=== PATIENT | female | born 1985 | race Caucasian/White ===

== ENCOUNTER 2020-01-26 17:45 | Emergency (ER) | payer OTHER, SELFPAY ==
[2020-01-26 18:26] VITALS: BP 118/80; PULSE 84; RESP 19; TEMP 36.8; O2SAT 99; BMI 25.6
--- NOTE | 2020-01-26 18:34 | HMH.EDUTC ---
[facility] [place] Disposition Clinical Impression: Muscle ache Disposition: Home, Self-Care Condition on Discharge: Good Additional Instructions: - Steroids RX'd - Educated on using ice/heat on area - Follow up with PCP next week if no improvement Prescriptions: predniSONE [Prednisone 20mg Tab] 20 mg PO BID #10 tab Prescription Printed Referrals: Daisha Abbasi [Primary Care Provider] - Time of Disposition: 18:40 Medical Decision Making - Raul Inquiry Pt receiving controlled substance: No Vital Signs: 01/26/20 18:26 Temperature 98.2 F Temperature Source Oral Pulse Rate [Right Brachial] 84 Respiratory Rate 19 Blood Pressure [Right Arm] 118/80 Blood Pressure Mean [Right Arm] 92 Blood Pressure Source [Right Arm] Automatic Cuff Blood Pressure Position [Right Arm] Sitting 02 Sat by Pulse Oximetry 99 Oxygen Delivery Method Room Air [facility] [place] HPI - General Chief complaint: Urgent Treatment Center Stated complaint: L shoulder pain back pain, muscle spasm Time Seen by Provider: 01/26/20 18:34 Mode of Arrival: Ambulatory Source of Information: Patient Limitations: No Limitations Description of Symptoms (Recalled from Triage Doc. by RN): PATIENT C/O MUSCLE SPASMS TO LEFT SHOULDER AND UPPER BACK X 4 MONTHS HEENT Symptoms (Recalled from RN notes): No Resp Symptoms (Recalled from RN notes): No Skin Symptoms (Recalled from RN notes): No MS Symptoms (Recalled from RN notes): Yes Functional Status (Recalled from RN notes): WNL - History of Present Illness Provider Complaint: 34 year old female presents today with complaint of left sided scapula pain. She says that she has been having muscle pain there for about 1.5 weeks. Prior to that was having muscle pain on the left pectoral muscle, and saw PCP and was given muscle relaxants. Says since then muscle pain is only in the scapula. She says the muscle relaxant knocks her out and then she doesnt move and is stiffened/worse spasming. She has not been taking the relaxants anymore. - Related Data Previous Rx's Medication Instructions Recorded predniSONE [Prednisone 20mg 20 mg PO BID #10 tab 01/26/20 Tab] Allergies Allergy/AdvReac Type Severity Reaction Status Date / Time No Known Allergies Allergy Verified 12/14/18 15:58 - Worker's Comp Is this a Worker's Comp case?: No [facility] History - Hepatitis A Screen Drug use history?: No High risk sexual behaviors?: No History of sexually transmitted infection?: No Currently employed?: No Childcare worker?: No Do you have indoor plumbing?: Yes Do you have electricity?: Yes Attestation statement:: This patient has been screened for Hepatitis A risk factors. I have reviewed the patient's past medical history: Yes - Social History Smoking Status: Never smoker Alcohol Intake: never Substance Use Type: denies use Occupational Status: other Housing: house Household Members: family Family Hx:: No significant family history ROS Obtained: Yes Systems reviewed as appropriate & no additional complaints - Constitutional Constitutional: Reports system reviewed and no additional complaints, except as docu, Denies body ache, Denies chills, Denies fever(s) - Eyes Eyes: Reports system reviewed and no additional complaints, except as docu, Denies change in vision - ENT Ears, Nose, Mouth, and Throat: Reports system reviewed and no additional complaints, except as docu - Cardiovascular Cardiovascular: Reports system reviewed and no additional complaints, except as docu, Denies chest pain, Denies chest pain at rest, Denies diaphoresis, Denies dyspnea - Respiratory Respiratory: Yes system reviewed and no additional complaints, except as docu, No chest congestion - Gastrointestinal Gastrointestingal: Reports: system reviewed and no additional complaints, except as docu. Denies: incontinent of stools - Genitourinary Female Genitourinary: Reports system reviewed and no additional complaints, except as docu - M
[2020-01-26 18:45] VITALS: BP 118/80; PULSE 84; RESP 19; TEMP 36.8; O2SAT 99
== END 2020-01-26 18:50 | disposition home or self-care (01) ==
PROVIDERS: Emergency Provider Nurse Practitioner Family; PCP Family Medicine
DX: M79.10 Myalgia, unspecified site (principal); M25.512 Pain in left shoulder
CPT/HCPCS: 99201

== ENCOUNTER 2020-08-23 16:53 | Emergency (ER) | payer OTHER, SELFPAY ==
[2020-08-23 16:55] VITALS: BP 125/71; PULSE 71; RESP 20; TEMP 37; O2SAT 98; BMI 24.7
[2020-08-23 17:03] VITALS: BMI 24.7
--- NOTE | 2020-08-23 17:03 | XR_ITS ---
PROCEDURE: XR HUMERUS LT CLINICAL INDICATION: INJURY Posttraumatic pain COMPARISON: No exams were available for comparison FINDINGS: No fracture or dislocation. No lytic or blastic change. There is normal mineralization. The joint spaces are well-preserved. No significant degenerative/arthritic changes. No erosive changes evident. Other findings:None. IMPRESSION: No acute findings. Dictated by: Adilson Yeh MD 08/24/2020 07:25 Adilson Yeh MD in [place] 08/24/2020 07:25
--- NOTE | 2020-08-23 17:03 | XR_ITS ---
PROCEDURE: XR ELBOW LT MIN 3V CLINICAL INDICATION: INJURY Posttraumatic pain COMPARISON: No exams were available for comparison FINDINGS: No fracture or dislocation. No lytic or blastic change. There is normal mineralization. The joint spaces are well-preserved. No significant degenerative/arthritic changes. No erosive changes evident. Other findings:None. IMPRESSION: No acute findings. Dictated by: Adilson Yeh MD 08/24/2020 07:24 Adilson Yeh MD in [place] 08/24/2020 07:24
--- NOTE | 2020-08-23 17:22 | HMH.EDUTC ---
[facility] [place] Clinical Impression: Elbow sprain Qualifiers: Encounter type: initial encounter Laterality: left Qualified Code(s): S53.402A - Unspecified sprain of left elbow, initial encounter Disposition: Home, Self-Care Condition on Discharge: Good Instructions: DI for Elbow Sprain Additional Instructions: elevate elizabeth ice for 20 mins remove then repeat tylenol or motrin fpr pain follow up with ortho if no improvement return Referrals: Daisha Abbasi [Primary Care Provider] - Time of Disposition: 17:33 Medical Decision Making - Raul Inquiry Pt receiving controlled substance: No Vital Signs: 08/23/20 16:55 08/23/20 17:28 Temperature 98.6 F 98.6 F Temperature Source Oral Pulse Rate 71 Pulse Rate [Right Brachial] 71 Respiratory Rate 20 20 Blood Pressure 125/71 Blood Pressure [Right Arm] 125/71 Blood Pressure Mean [Right Arm] 89 Blood Pressure Source [Right Arm] Automatic Cuff Blood Pressure Position [Right Arm] Sitting 02 Sat by Pulse Oximetry 98 Orders (Tests/Meds): ORDERS Category Date Time Status Elbow XR left mininum 3 views [XR elbow LT min 3V] Stat Exams 08/23/20 17:03 Taken XR humerus LT Stat Exams 08/23/20 17:03 Taken [facility] [place] - General Chief complaint: Urgent Treatment Center Stated complaint: AO fell 08/18 injured L arm Time Seen by Provider: 08/23/20 17:22 Mode of Arrival: Ambulatory Source of Information: Patient Limitations: No Limitations Description of Symptoms (Recalled from Triage Doc. by RN): PATIENT C/O PAIN TO LEFT ELBOW AREA AFTER FALLING ON TUESDAY HEENT Symptoms (Recalled from RN notes): No Resp Symptoms (Recalled from RN notes): No Skin Symptoms (Recalled from RN notes): No MS Symptoms (Recalled from RN notes): Yes Functional Status (Recalled from RN notes): WNL - History of Present Illness Provider Complaint: 34 yr old female presents for left elbow pain.pt states she fell on tuesday and the pain in her elbow did not improve so she wanted to have it checked. pt states pain worse with rom - Related Data Allergies Allergy/AdvReac Type Severity Reaction Status Date / Time No Known Allergies Allergy Verified 12/14/18 15:58 - Worker's Comp Is this a Worker's Comp case?: No [facility] History - Hepatitis A Screen Drug use history?: No High risk sexual behaviors?: No History of sexually transmitted infection?: No Currently employed?: No Childcare worker?: No Do you have indoor plumbing?: Yes Do you have electricity?: Yes Attestation statement:: This patient has been screened for Hepatitis A risk factors. I have reviewed the patient's past medical history: Yes - Social History Smoking Status: Never smoker Alcohol Intake: never Substance Use Type: denies use Occupational Status: other Housing: house Household Members: family Family Hx:: No significant family history ROS Obtained: Yes Systems reviewed as appropriate & no additional complaints - Constitutional Constitutional: Reports system reviewed and no additional complaints, except as docu, Denies fever(s) - Eyes Eyes: Reports system reviewed and no additional complaints, except as docu, Denies change in vision - ENT Ears, Nose, Mouth, and Throat: Reports system reviewed and no additional complaints, except as docu, Denies sore throat - Cardiovascular Cardiovascular: Reports system reviewed and no additional complaints, except as docu, Denies chest pain - Respiratory Respiratory: Reports system reviewed and no additional complaints, except as docu, Denies change in phlegm color - Gastrointestinal Gastrointestingal: Reports: system reviewed and no additional complaints, except as docu. Denies: bloating - Genitourinary Female Genitourinary: Reports system reviewed and no additional complaints, except as docu - Musculoskeletal Musculoskeletal: Reports system reviewed and no additional complaints, except as docu, Reports as per HPI, Reports joint pain Comments: pain wi
[2020-08-23 17:28] VITALS: BP 125/71; PULSE 71; RESP 20; TEMP 37; O2SAT 98
== END 2020-08-23 17:35 | disposition home or self-care (01) ==
PROVIDERS: Emergency Provider Nurse Practitioner Family; PCP Family Medicine
DX: S53.402A Unspecified sprain of left elbow, initial encounter (principal); W01.0XXA Fall on same level from slipping, tripping and stumbling without subsequent striking against object, initial encounter; Y92.9 Unspecified place or not applicable
CPT/HCPCS: 73060; 73080; 99202; G0463

== ENCOUNTER 2023-01-20 20:16 | Emergency (ER) | payer OTHER, SELFPAY ==
[2023-01-20 20:30] VITALS: BP 121/73; PULSE 98; RESP 16; TEMP 36.6; O2SAT 100; BMI 27.3
[2023-01-20 21:00] VITALS: BP 121/53; PULSE 89; O2SAT 98
--- NOTE | 2023-01-20 21:04 | PC.NURSE ---
rounded on pt nothing needed at this time,call light at bs
--- NOTE | 2023-01-20 21:08 | HMH.EDGENADL ---
Discharge Plan Disposition Patient Disposition: Home, Self-Care Condition: Good Chief Complaint: Nausea/Vomiting/Diarrhea Referrals Follow up/Referrals: Daisha Abbasi [Primary Care Provider] - See instructions Clinical Impressions Clinical Impression: Mild tetrahydrocannabinol (THC) abuse Intoxication by drug Qualifiers: Complication of substance-induced condition: uncomplicated Qualified Code(s): F19.920 - Other psychoactive substance use, unspecified with intoxication, uncomplicated Instructions Patient Instructions: DI for Diarrhea and Traveler's Diarrhea -- Adult, DI for Diarrhea and Traveler's Diarrhea -- Child, DI for Nausea -- Adult, DI for Nausea -- Child Discharge ED Provider: Shane Chou General Adult HPI General Chief complaint: Nausea/Vomiting/Diarrhea Stated complaint: 1500 ate thc gummy, vomiting Time Seen by Provider: 01/20/23 20:32 Mode of Arrival: Ambulatory Source of Information: Patient Limitations: No Limitations Description of Symptoms (Recalled from ER Triage Doc. by RN): pt states she tried a new THC gummy today around 1500. It was half of a [place] [employer]ocket 3000 mg D8 D9 [facility] THCP [place]. pt states this is different than other occasions. pt states she has had N/V, feels like she is slow to respond, and she feels like the gummy is taking much longer to wear off. History of Present Illness HPI narrative: This is a 37-year-old female with no relevant medical history presenting with a intoxication. Patient states that she had a THC gummy around 1500 today. Since that time, has felt fuzzy, hot and icy cold at the same time. Denies blurry vision, double vision, but has had nausea and vomiting. Denies abdominal pain, chest pain, shortness of breath, hallucinations. Alert and oriented on my evaluation. Has been able to urinate since that time. Related Data Allergies Allergy/AdvReac Type Severity Reaction Status Date / Time No Known Allergies Allergy Verified 01/20/23 20:55 [facility] Disclaimer: The information contained in this section may have been updated after the patient was seen, as this information can be updated by other users. Social History Smoking Status: Never smoker alcohol intake: never substance use type: denies use current occupational status: other Travel in the last 8 weeks: None household members: family housing: house ROS Obtained: Yes All systems reviewed & no additional complaints except as documented Physical Exam General General appearance: alert, in no apparent distress and other ( ) Head Head exam: atraumatic and normocephalic Eye Eye exam: Present normal appearance, PERRL, EOMI and mydriasis ENT ENT exam: Present mucous membranes moist Neck Neck exam: Present normal inspection, full ROM and trachea midline Respiratory Respiratory exam: Absent respiratory distress, wheezes, stridor, accessory muscle use or prolonged expiratory phase Cardiovascular Cardiovascular exam: Present regular rate and normal rhythm Abdominal Exam Abdominal exam: Present soft; Absent distention, tenderness, guarding, rebound, rigidity or normal bowel sounds Extremities Exam Extremities exam: Absent edema Neurological Exam Neurological exam: Present alert, oriented X3, CN II-XII intact and normal gait; Absent motor sensory deficit Skin Skin exam: Present warm and dry; Absent diaphoresis or erythema Medical Decision Making Medical Records Medical records reviewed: Yes I reviewed the patient's medical records. Raul Inquiry Pt receiving controlled substance: No Raul was queried for this patient: No Vital Signs: 01/20/23 20:30 01/20/23 21:00 01/20/23 21:30 Temperature 98 F Temperature Source Oral Pulse Rate 89 85 Pulse Rate [Left] 98 H Respiratory Rate 16 Blood Pressure 121/53 L 117/65 Blood Pressure [Right Arm] 121/73 Blood Pressure Mean 88 85 Blood Pressure Mean [Right Arm] 89 Blood Pressure Source [Right Arm] Automatic Cuff
--- NOTE | 2023-01-20 21:21 | ECG_ITS ---
APPROVED REPORT Exam: Resting ECG HR:88 bpm ECG Measurements Heart Rate 88 AXES WA 176 P 76 QRSd 101 QRS 94 QT 363 T 77 QTc 408 Conclusion SINUS RHYTHM BORDERLINE RIGHT AXIS DEVIATION [QRS AXIS > 90] BORDERLINE ECG UNCONFIRMED REPORT Electronically signed by : César Ayala MD 01/21/2023 16:16:55
[2023-01-20 21:30] VITALS: BP 117/65; PULSE 85; O2SAT 98
[2023-01-20 21:37] LABS: Benzodiazepines Screen,Urine Negative ng/ml (<200)
[2023-01-20 21:38] LABS: Amphetamine/Metha Screen,Urine Negative ng/ml (<1000); Barbiturates Screen,Urine Negative ng/ml (<200)
[2023-01-20 21:39] LABS: Cannabinoid Screen,Urine Positive ng/ml (<50); Cocaine Screen,Urine Negative ng/ml (<300)
[2023-01-20 21:40] LABS: Methadone Screen,Urine Negative ng/ml (<300)
[2023-01-20 21:41] LABS: Opiate Screen,Urine Negative ng/ml (<300); Phencyclidine Screen,Urine Negative ng/ml (<25)
[2023-01-20 22:05] VITALS: BP 124/61; PULSE 83; RESP 16; TEMP 36.7
== END 2023-01-20 22:19 | disposition home or self-care (01) ==
PROVIDERS: Emergency Provider Emergency Medicine; PCP Family Medicine
DX: F12.129 Cannabis abuse with intoxication, unspecified (principal); R11.10 Vomiting, unspecified
CPT/HCPCS: 80305; 93005; 93041; 96360; 99284

== ENCOUNTER 2024-01-03 21:12 | Emergency (ER) | payer OTHER, SELFPAY ==
[2024-01-03] VITALS (8 sets, daily range): BP systolic 115–158; BP diastolic 63–88; PULSE 61–80; RESP 14–25; TEMP 36.8; O2SAT 94–100; BMI 25.7
--- NOTE | 2024-01-03 21:12 | ECG_ITS ---
APPROVED REPORT Exam: Resting ECG HR:74 bpm ECG Measurements Heart Rate 74 AXES RI 163 P 66 QRSd 94 QRS 98 QT 355 T 65 QTc 383 Conclusion SINUS RHYTHM BORDERLINE RIGHT AXIS DEVIATION [QRS AXIS > 90] BORDERLINE ECG Electronically signed by : DYLON KRUSE, 01/04/2024 07:56:07
--- NOTE | 2024-01-03 21:20 | XR_ITS ---
PROCEDURE INFORMATION: Exam: XR Chest Exam date and time: 01/03/2024 9:24 PM Age: 38 years old Clinical indication: Chest wall pain; Additional info: Left chest wall pain TECHNIQUE: Imaging protocol: Radiologic exam of the chest. Views: 1 view. COMPARISON: CR XR HUMERUS LT 08/23/2020 5:00 PM FINDINGS: Lungs: Right mid to lower lung zone calcified granuloma. No consolidation. Pleural spaces: Unremarkable. No pleural effusion. No pneumothorax. Heart/Mediastinum: Unremarkable. No cardiomegaly. Vasculature: Unremarkable. Bones/joints: Unremarkable. IMPRESSION: No acute findings.
[2024-01-03 21:35] LABS: Basophils % 0.7 % (0.1-2.0); Eosinophils # 0.1 K/mm3 (0.0-0.4); Eosinophils % 1.3 % (0.1-12.0); Hematocrit 38.6 % (37.0-47.0); Hemoglobin 13.8 g/dL (12.2-16.2); Lymphocytes # 2.5 K/mm3 (0.7-4.5); Lymphocytes % 41.4 % (10-50); Mean Corpuscular HGB Conc 35.6 g/dL (31.8-35.4); Mean Corpuscular Hemoglobin 33.2 pg (27.0-31.2); Mean Corpuscular Volume 93.3 fl (81-99); Monocytes # 0.3 K/mm3 (0.1-1.0); Monocytes % 5.7 % (1.7-9.3); Neutrophils # 3.1 K/mm3 (1.8-7.8); Neutrophils % 50.8 % (37.0-80.0); Platelet Count 254 K/mm3 (142-424); Red Blood Count 4.14 M/mm3 (4.20-5.40); Red Cell Distribution Width 13.5 % (11.5-17.5)
[2024-01-03 21:40] LABS: Chloride 105 mmol/L (98-107); Potassium 3.5 mmoL/L (3.5-5.1); Sodium 140 mmol/L (136-145)
--- NOTE | 2024-01-03 21:40 | [facility].EDCP ---
Discharge Plan Disposition Patient Disposition: Home, Self-Care Condition: Good Referrals Follow up/Referrals: Provider,MD Annel [Primary Care Provider] - See instructions Activity Restrictions/Add. Instructions Additional Instructions/Restrictions: You were evaluated in the ER. You are appropriate for discharge at this time. Make an appointment with your primary care physician for reevaluation in 2 to 3 days. Discuss with them your ER visit. Also discuss with them the thyroid nodule that was identified on CT imaging. This does not appear to be anything dangerous, they can monitor it in the future. Return to the ER with new, worsening, or otherwise concerning symptoms. Clinical Impressions Clinical Impression: Chest pain, Acute neck pain, Headache Discharge ED Provider: Shahbaz Tran HPI <Shahbaz Tran MD - Last Filed: 01/03/24 23:37> General Chief Complaint: Chest Pain Stated Complaint: CP Time Seen by Provider: 01/03/24 21:20 Mode of Arrival: Ambulatory Source of Information: Patient Limitations: No Limitations Description of Symptoms (Recalled from ER Triage Doc. by RN): 38 F presents with 2-3 days of left chest wall pain that she describes as a muscle spasm. Patient reports this started in her left shoulder blade, but now is in her chest. Patient denies cardiac issues. She only takes vitamins daily. Denies smoking. Patient adds that she has noticed increased swelling to her hands and abdominal area which is not normal for her. History of Present Illness HPI narrative: Patient is a 38-year-old female with no chronic comorbidities who presents emergency department for evaluation of chest pain. Patient has had a left-sided neck pain rating up into her head with a severe left-sided headache over the last few days, she has had headaches at baseline however they are nothing like this. Earlier this evening she had what she describes as muscle spasms that were substernal, sharp, there were a few and they are not continuing to go on however due to persistent symptoms that are concerning to her she presents here for continued evaluation. The pain in her neck and left anterior chest intermittently goes through to her shoulder blade, she describes the pain as what you feel when you are too cold. No chest surgeries, no other acute complaints at this time. Related Data Allergies Allergy/AdvReac Type Severity Reaction Status Date / Time No Known Allergies Allergy Verified 01/20/23 20:55 PFSH <Shahbza Tran MD - Last Filed: 01/03/24 23:37> [facility] Disclaimer: The information contained in this section may have been updated after the patient was seen, as this information can be updated by other users. Social History Smoking Status: Never smoker alcohol intake: never substance use type: denies use current occupational status: other Travel in the last 8 weeks: None household members: family housing: house <Shahbaz Tran MD - Last Filed: 01/03/24 23:37> ROS Obtained: Yes Systems reviewed as appropriate & no additional complaints except as documented Physical Exam <Shahbaz Tran MD - Last Filed: 01/03/24 23:37> General General appearance: alert and in no apparent distress Head Head exam: atraumatic and normocephalic Eye Eye exam: Present PERRL ENT ENT exam: Present mucous membranes moist Neck Neck exam: Present normal inspection Chest Chest inspection: Present normal inspection and symmetric chest wall rise Respiratory Respiratory exam: Absent respiratory distress Cardiovascular Cardiovascular exam: Present regular rate and normal rhythm Abdominal Exam Abdominal exam: Present soft; Absent tenderness Extremities Exam Extremities exam: Present normal inspection Neurological Exam Neurological exam: Present alert Psychiatric Psychiatric exam: Present normal affect Skin Skin exam: Present warm and dry HEART Score <Shahbaz Tran MD - Last Filed: 01/03/24 23:37> HEART Score HEART Score assessment performed?: Yes History (anamnesis): Moderately suspicious ECG: Normal Age: <45 years Risk factors: No known risk factors Troponin: </= normal limit HEART Score: 1 <Kayla Leon MD - Last Filed: 01/04/24 00:39> HEART Score HEART Score: 1 Critical Care <Shahbaz Tran MD - Last Filed: 01/03/24 23:37> Critical Care Time Critical Care Time: No Medical Decision Making <Shahbaz Tran MD - Last Filed: 01/03/24 23:37> Raul Inquiry Pt receiving controlled substance: No Vital Signs Vital Signs: 01/03/24 21:13 01/03/24 21:19 01/03/24 21:21 Temperature 98.2 F Temperature Source Oral Pulse Rate 70 65 Pulse Rate [Left] 72 Respiratory Rate 22 14 Blood Pressure 150/82 H Blood Pressure [Right Arm] 154/78 H Blood Pressure Mean [Right Arm] 103 Blood Pressure Source [Right Arm] Automatic Cuff Blood Pressure Position [Right Arm] Supine 02 Sat by Pulse Oximetry 98 100 Oxygen Delivery Method Room Air 01/03/24 21:30 01/03/24 22:00 01/03/24 22:31 Temperature Temperature Source Pulse Rate 67 66 61 Pulse Rate [Left] Respiratory Rate 15 25 H Blood Pressure 158/88 H 135/74 130/63 Blood Pressure [Right Arm] Blood Pressure Mean [Right Arm] Blood Pressure Source [Right Arm] Blood Pressure Position [Right Arm] 02 Sat by Pulse Oximetry 99 97 94 L Oxygen Delivery Method 01/03/24 23:01 01/03/24 23:30 Temperature Temperature Source Pulse Rate 80 62 Pulse Rate [Left] Respiratory Rate 21 20 Blood Pressure 128/66 115/67 Blood Pressure [Right Arm] Blood Pressure Mean [Right Arm] Blood Pressure Source [Right Arm] Blood Pressure Position [Right Arm] 02 Sat by Pulse Oximetry 97 100 Oxygen Delivery Method Lab Data Labs: Lab Results 01/03/24 21:22: WBC 6.0, RBC 4.14 L, Hgb 13.8, Hct 38.6, MCV 93.3, MCH 33.2 H, MCHC 35.6 H, RDW 13.5, Plt Count 254, MPV 7.0 L, Neut % (Auto) 50.8, Lymph % (Auto) 41.4, [place] % (Auto) 5.7, Eos % (Auto) 1.3, Baso % (Auto) 0.7, Neut # (Auto) 3.1, Lymph # (Auto) 2.5, [place] # (Auto) 0.3, Eos # (Auto) 0.1, Baso # (Auto) 0.0, Sodium 140, Potassium 3.5, Chloride 105, Carbon Dioxide 25, Anion Gap 13.5, BUN 12, Creatinine 0.80, Estimated Creat Clear 97, Estimated GFR 79, Est GFR ( Amer) 96, Glucose 123 H, Calcium 9.5, Total Bilirubin 0.3, AST 25, ALT 28, Alkaline Phosphatase 58, Troponin I < 0.01, Total Protein 7.5, Albumin 4.7, Globulin 2.8, Albumin/Globulin Ratio 1.7, Serum HCG, Qual Negative 01/04/24 00:00: Troponin I < 0.01 01/03/24 21:22 01/03/24 21:22 Response Orders (Tests/Meds): ED MEDICATIONS Generic Name Dose Route Start Last Admin Trade Name Jonah PRN Reason Stop Dose Admin Sodium Chloride 10 ml 01/03/24 21:20 Sodium Chloride 0.9% 10ml Flush Syringe IV 02/02/24 21:19 NEEDED PRN Maintain IV Site Discontinued Medications Generic Name Dose Route Start Last Admin Trade Name Jonah PRN Reason Stop Dose Admin Acetaminophen 1,000 mg 01/03/24 21:54 01/03/24 22:05 Acetaminophen 1,000mg/100ml Vial IV 01/03/24 21:55 1,000 mg ONCE ONE Administration Diphenhydramine HCl 50 mg 01/03/24 21:54 01/03/24 22:05 Diphenhydramine 50mg/Ml Vial IV 01/03/24 21:55 50 mg ONCE ONE Administration Lactated Ringer's 1,000 mls @ 999 mls/hr 01/03/24 21:54 01/03/24 22:05 Lactated Ringer's 1000 Ml Bag IV 01/03/24 22:54 999 mls/hr .Q1H1M ONE Administration Iopamidol 180 ml 01/03/24 23:04 01/03/24 23:05 Iopamidol-370 (76%);100ml Bottle IV 01/03/24 23:05 180 ml ONCE ONE Administration Prochlorperazine Edisylate 5 mg 01/03/24 21:54 01/03/24 22:05 Prochlorperazine 10mg/2ml Vial IV 01/03/24 21:55 5 mg ONCE ONE Administration Sodium Chloride 100 ml 01/03/24 23:03 01/03/24 23:04 0.9 % Sodium Chloride 50 Ml Vial IV 01/03/24 23:04 100 ml ONCE ONE Administration Sodium Chloride 10 ml 01/03/24 23:04 01/03/24 23:05 Sodium Chloride 0.9% 10ml Syr (Rad Only) IV 01/03/24 23:05 10 ml ONCE ONE Administration ORDERS Category Date Time Status CT angio chest - dissection Stat Cat Scan 01/03/24 21:[address] angio head Stat Cat Scan 01/03/24 21:[address] angio neck Stat Cat Scan 01/03/24 21:[address] head/brain wo con Stat Cat Scan 01/03/24 21:54 Completed XR chest portable Stat Exams 01/03/24 21:20 Completed Complete Blood Count Auto Diff Stat Lab 01/03/24 21:22 Completed Comprehensive Metabolic Panel Stat Lab 01/03/24 21:22 Completed HCG Qualitative, Serum Stat Lab 01/03/24 21:22 Completed Troponin I Q3H Lab 01/03/24 21:22 Completed Troponin I Q3H Lab 01/04/24 00:00 Completed Troponin I Q3H Lab 01/04/24 03:30 Ordered ECG Data Tracing #1: ECG Narrative: Independently interpreted by me rate is 74, rhythm is regular, axis is rightward deviated, no ST elevation in anatomical contiguous leads, QTc 383. MDM Narrative Medical Decision Narrative: In summary patient is a 38-year-old female past medical history described above presents emergency department for evaluation of chest pain, neck pain, headache. Patient is hemodynamically stable nontoxic-appearing upon arrival, afebrile. Differential diagnosis includes dissection, ACS, noncardiac chest pain, malpositioning with muscle spasm, among others. Workup will be conducted with hematologic labs, CTA, serial troponins. Initial inventions include headache cocktail, crystalloid bolus. Workup reviewed by me, hematologic labs are nonactionable, initial troponin undetectably low, hCG negative. CT imaging and repeat evaluation pending at time of transfer of care to the oncoming physician, Dr. Leon. <Kayla Leon MD - Last Filed: 01/04/24 00:39> Vital Signs Vital Signs: 01/03/24 21:13 01/03/24 21:19 01/03/24 21:21 Temperature 98.2 F Temperature Source Oral Pulse Rate 70 65 Pulse Rate [Left] 72 Respiratory Rate 22 14 Blood Pressure 150/82 H Blood Pressure [Right Arm] 154/78 H Blood Pressure Mean [Right Arm] 103 Blood Pressure Source [Right Arm] Automatic Cuff Blood Pressure Position [Right Arm] Supine 02 Sat by Pulse Oximetry 98 100 Oxygen Delivery Method Room Air 01/03/24 21:30 01/03/24 22:00 01/03/24 22:31 Temperature Temperature Source Pulse Rate 67 66 61 Pulse Rate [Left] Respiratory Rate 15 25 H Blood Pressure 158/88 H 135/74 130/63 Blood Pressure [Right Arm] Blood Pressure Mean [Right Arm] Blood Pressure Source [Right Arm] Blood Pressure Position [Right Arm] 02 Sat by Pulse Oximetry 99 97 94 L Oxygen Delivery Method 01/03/24 23:01 01/03/24 23:30 Temperature Temperature Source Pulse Rate 80 62 Pulse Rate [Left] Respiratory Rate 21 20 Blood Pressure 128/66 115/67 Blood Pressure [Right Arm] Blood Pressure Mean [Right Arm] Blood Pressure Source [Right Arm] Blood Pressure Position [Right Arm] 02 Sat by Pulse Oximetry 97 100 Oxygen Delivery Method Lab Data Labs: Lab Results 01/03/24 21:22: WBC 6.0, RBC 4.14 L, Hgb 13.8, Hct 38.6, MCV 93.3, MCH 33.2 H, MCHC 35.6 H, RDW 13.5, Plt Count 254, MPV 7.0 L, Neut % (Auto) 50.8, Lymph % (Auto) 41.4, [place] % (Auto) 5.7, Eos % (Auto) 1.3, Baso % (Auto) 0.7, Neut # (Auto) 3.1, Lymph # (Auto) 2.5, [place] # (Auto) 0.3, Eos # (Auto) 0.1, Baso # (Auto) 0.0, Sodium 140, Potassium 3.5, Chloride 105, Carbon Dioxide 25, Anion Gap 13.5, BUN 12, Creatinine 0.80, Estimated Creat Clear 97, Estimated GFR 79, Est GFR ( Amer) 96, Glucose 123 H, Calcium 9.5, Total Bilirubin 0.3, AST 25, ALT 28, Alkaline Phosphatase 58, Troponin I < 0.01, Total Protein 7.5, Albumin 4.7, Globulin 2.8, Albumin/Globulin Ratio 1.7, Serum HCG, Qual Negative 01/04/24 00:00: Troponin I < 0.01 Response Orders (Tests/Meds): ED MEDICATIONS Generic Name Dose Route Start Last Admin Trade Name Freq PRN Reason Stop Dose Admin Sodium Chloride 10 ml 01/03/24 21:20 Sodium Chloride 0.9% 10ml Flush Syringe IV 02/02/24 21:19 NEEDED PRN Maintain IV Site Discontinued Medications Generic Name Dose Route Start Last Admin Trade Name Freq PRN Reason Stop Dose Admin Acetaminophen 1,000 mg 01/03/24 21:54 01/03/24 22:05 Acetaminophen 1,000mg/100ml Vial IV 01/03/24 21:55 1,000 mg ONCE ONE Administration Diphenhydramine HCl 50 mg 01/03/24 21:54 01/03/24 22:05 Diphenhydramine 50mg/Ml Vial IV 01/03/24 21:55 50 mg ONCE ONE Administration Lactated Ringer's 1,000 mls @ 999 mls/hr 01/03/24 21:54 01/03/24 22:05 Lactated Ringer's 1000 Ml Bag IV 01/03/24 22:54 999 mls/hr .Q1H1M ONE Administration Iopamidol 180 ml 01/03/24 23:04 01/03/24 23:05 Iopamidol-370 (76%);100ml Bottle IV 01/03/24 23:05 180 ml ONCE ONE Administration Prochlorperazine Edisylate 5 mg 01/03/24 21:54 01/03/24 22:05 Prochlorperazine 10mg/2ml Vial IV 01/03/24 21:55 5 mg ONCE ONE Administration Sodium Chloride 100 ml 01/03/24 23:03 01/03/24 23:04 0.9 % Sodium Chloride 50 Ml Vial IV 01/03/24 23:04 100 ml ONCE ONE Administration Sodium Chloride 10 ml 01/03/24 23:04 01/03/24 23:05 Sodium Chloride 0.9% 10ml Syr (Rad Only) IV 01/03/24 23:05 10 ml ONCE ONE Administration ORDERS Category Date Time Status CT angio chest - dissection Stat Cat Scan 01/03/24 21:[address] angio head Stat Cat Scan 01/03/24 21:[address] angio neck Stat Cat Scan 01/03/24 21:[address] head/brain wo con Stat Cat Scan 01/03/24 21:54 Completed XR chest portable Stat Exams 01/03/24 21:20 Completed Complete Blood Count Auto Diff Stat Lab 01/03/24 21:22 Completed Comprehensive Metabolic Panel Stat Lab 01/03/24 21:22 Completed HCG Qualitative, Serum Stat Lab 01/03/24 21:22 Completed Troponin I Q3H Lab 01/03/24 21:22 Completed Troponin I Q3H Lab 01/04/24 00:00 Completed Troponin I Q3H Lab 01/04/24 03:30 Ordered MDM Narrative Medical Decision Narrative: In summary patient is a 38-year-old female past medical history described above presents emergency department for evaluation of chest pain, neck pain, headache. Patient is hemodynamically stable nontoxic-appearing upon arrival, afebrile. Differential diagnosis includes dissection, ACS, noncardiac chest pain, malpositioning with muscle spasm, among others. Workup will be conducted with hematologic labs, CTA, serial troponins. Initial inventions include headache cocktail, crystalloid bolus. Workup reviewed by me, hematologic labs are nonactionable, initial troponin undetectably low, hCG negative. CT imaging and repeat evaluation pending at time of transfer of care to the oncoming physician, Dr. Leon. Edward: Upon my assumption of care patient is stable and resting comfortably. CT imaging pending at time of my assumption of care. I reviewed the labs from Dr. Tran and agree with his assessment and plan so far. Serial troponin also pending. Repeat troponin undetectably low at less than 0.01, no significant delta. Nonactionable. CT head personally interpreted does not demonstrate any acute intracranial abnormality, no mass, bleed, or midline shift. See radiology read for final interpretation. CT angiography was reviewed and there are no acute vascular abnormalities. Incidentally, thyroid nodule was identified. Patient was made aware of incidental findings. On reassessment patient continues to be stable, her symptoms are dramatically improved, she feels much better and is appropriate for discharge. Patient was given instructions on continued symptomatic management, follow-up instructions, strict return precautions for the ER. She indicated understanding and the patient was discharged in stable condition.
[2024-01-03 21:42] LABS: Blood Urea Nitrogen 12 mg/dl (7-17); Creatinine Clearance Estimated 97 mL/min (50-200); Estimated Glomerular Filt Rate 79 ml/min (>60); GFR (African American) 96 ML/MIN (>60)
[2024-01-03 21:43] LABS: Alanine Aminotransferase 28 U/L (12-78); Albumin Level 4.7 g/dl (3.5-5.0); Albumin/Globulin Ratio 1.7 (1.1-1.8); Alkaline Phosphatase 58 U/L (38-126); Anion Gap 13.5 mEq/L (5-15); Aspartate Amino Transferase 25 U/L (14-36); Bilirubin,Total 0.3 mg/dl (0.2-1.3); Calcium 9.5 mg/dl (8.4-10.2); Carbon Dioxide 25 mmol/L (22.0-30.0); Globulin 2.8 g/dL (1.3-3.2); Glucose 123 mg/dl (74-100); Total Protein,Serum 7.5 g/dl (6.3-8.2)
--- NOTE | 2024-01-03 21:54 | CT_ITS ---
PROCEDURE INFORMATION: Exam: CTA Head With Contrast, Arteriography Exam date and time: 01/03/2024 10:50 PM Age: 38 years old Clinical indication: Pain; Headache; Additional info: L severe MARTIN TECHNIQUE: Imaging protocol: Computed tomographic angiography of the head with contrast. Exam focused on the arteries. 3D rendering (Not supervised by radiologist): MIP and/or 3D reconstructed images were created by the technologist. Radiation optimization: All CT scans at this facility use at least one of these dose optimization techniques: automated exposure control; mA and/or kV adjustment per patient size (includes targeted exams where dose is matched to clinical indication); or iterative reconstruction. Contrast material: ISOVUE; Contrast volume: 90 ml; Contrast route: INTRAVENOUS (IV); COMPARISON: CT HEAD/BRAIN WO CON 01/03/2024 10:48 PM FINDINGS: ANTERIOR CIRCULATION: Right internal carotid artery: Intracranial segment is patent with no significant stenosis. No aneurysm. Right middle cerebral artery: No occlusion or significant stenosis. No aneurysm. Right anterior cerebral artery: No occlusion or significant stenosis. No aneurysm. Left internal carotid artery: Intracranial segment is patent with no significant stenosis. No aneurysm. Left middle cerebral artery: No occlusion or significant stenosis. No aneurysm. Left anterior cerebral artery: No occlusion or significant stenosis. No aneurysm. POSTERIOR CIRCULATION: Right vertebral artery: Diminutive. No occlusion or significant stenosis. No aneurysm. Left vertebral artery: No occlusion or significant stenosis. No aneurysm. Basilar artery: No occlusion or significant stenosis. No aneurysm. Right posterior cerebral artery: No occlusion or significant stenosis. No aneurysm. Left posterior cerebral artery: No occlusion or significant stenosis. No aneurysm. Brain: No definite mass, mass effect, or midline shift. Cerebral ventricles: No ventriculomegaly. Bones/joints: Unremarkable. No acute fracture. Soft tissues: Unremarkable. Thyroid: Right thyroid lobe is diminutive. Subcentimeter left thyroid lobe nodule. No follow-up is necessary. Lymph nodes: Calcified right hilar and mediastinal lymph nodes. IMPRESSION: No large vessel stenosis or occlusion.
--- NOTE | 2024-01-03 21:54 | CT_ITS ---
PROCEDURE INFORMATION: Exam: CTA Chest With Contrast Exam date and time: 01/03/2024 10:54 PM Age: 38 years old Clinical indication: Pain; Chest pressure; Additional info: Cp to back and L neck TECHNIQUE: Imaging protocol: Computed tomographic angiography of the chest with contrast. Exam focused on the arteries. 3D rendering (Not supervised by radiologist): MIP and/or 3D reconstructed images were created by the technologist. Radiation optimization: All CT scans at this facility use at least one of these dose optimization techniques: automated exposure control; mA and/or kV adjustment per patient size (includes targeted exams where dose is matched to clinical indication); or iterative reconstruction. Contrast material: ISOVUE; Contrast volume: 90 ml; Contrast route: INTRAVENOUS (IV); COMPARISON: CR XR CHEST PORTABLE 01/03/2024 9:24 PM FINDINGS: Pulmonary arteries: Normal. No pulmonary emboli. Aorta: Unremarkable. No aortic aneurysm. No aortic dissection. Lungs: Right middle lobe calcified granuloma. Pleural spaces: Unremarkable. No pneumothorax. No pleural effusion. Heart: Unremarkable. No cardiomegaly. No pericardial effusion. Lymph nodes: Unremarkable. No enlarged lymph nodes. Diaphragm: A small hiatal hernia is present. Liver: Hepatic steatosis is noted. Bones/joints: Unremarkable. No acute fracture. Soft tissues: Unremarkable. IMPRESSION: No acute findings. No pulmonary embolus or acute aortic abnormality.
--- NOTE | 2024-01-03 21:54 | CT_ITS ---
PROCEDURE INFORMATION: Exam: CT Head Without Contrast Exam date and time: 01/03/2024 10:48 PM Age: 38 years old Clinical indication: Pain; Headache; Additional info: L severe MARTIN TECHNIQUE: Imaging protocol: Computed tomography of the head without contrast. Radiation optimization: All CT scans at this facility use at least one of these dose optimization techniques: automated exposure control; mA and/or kV adjustment per patient size (includes targeted exams where dose is matched to clinical indication); or iterative reconstruction. COMPARISON: CT HEAD/BRAIN WO CON 01/03/2024 10:48 PM FINDINGS: Brain: Normal. No hemorrhage. Unremarkable white matter. No mass effect. Cerebral ventricles: No ventriculomegaly. Paranasal sinuses: Visualized sinuses are unremarkable. No fluid levels. Mastoid air cells: Visualized mastoid air cells are well aerated. Orbital cavities: The orbital contents are symmetric and normal. Bones: Unremarkable. No acute fracture. Soft tissues: Unremarkable. IMPRESSION: No acute intracranial abnormality.
--- NOTE | 2024-01-03 21:54 | CT_ITS ---
PROCEDURE INFORMATION: Exam: CTA Neck With Contrast Exam date and time: 01/03/2024 10:50 PM Age: 38 years old Clinical indication: Pain; Other: Neck; Additional info: L neck pain TECHNIQUE: Imaging protocol: Computed tomographic angiography of the neck with contrast. Exam focused on the cervical segments of the vasculature. 3D rendering (Not supervised by radiologist): MIP and/or 3D reconstructed images were created by the technologist. Radiation optimization: All CT scans at this facility use at least one of these dose optimization techniques: automated exposure control; mA and/or kV adjustment per patient size (includes targeted exams where dose is matched to clinical indication); or iterative reconstruction. Contrast material: ISOVUE; Contrast volume: 90 ml; Contrast route: INTRAVENOUS (IV); COMPARISON: CT ANGIO NECK 01/03/2024 10:50 PM FINDINGS: Right common carotid artery: No stenosis. No dissection or occlusion. Right internal carotid artery: No stenosis of the extracranial segment. No dissection or occlusion. Right external carotid artery: No occlusion or stenosis of the origin. Left common carotid artery: No stenosis. No dissection or occlusion. Left internal carotid artery: No stenosis of the extracranial segment. No dissection or occlusion. Left external carotid artery: No occlusion or stenosis of the origin. Right vertebral artery: Right vertebral artery is diminutive throughout its course. No stenosis. No dissection or occlusion. Left vertebral artery: No stenosis. No dissection or occlusion. Thyroid: Right thyroid lobe is diminutive. Subcentimeter left thyroid lobe nodule. No follow-up is necessary. Lymph nodes: Calcified right hilar and mediastinal lymph nodes. Soft tissues: Normal. No significant soft tissue swelling. Bones/joints: No acute fracture. IMPRESSION: No stenosis or occlusion. COMMENTS: Consistent with the [employer]'s Incidental Findings Committee white paper (J Am Aby Radiol 2015): In patients aged 35 years and older with an incidental thyroid nodule equal to or greater than 1.[address], MRI or extrathyroidal US, further evaluation with dedicated thyroid US is recommended for patients with normal life expectancy and without comorbidities. For smaller nodules without suspicious features, no further evaluation or follow up is recommended. REFERENCES: NASCET CRITERIA. The degree of stenosis in the cervical segment of the internal carotid artery is based on NASCET criteria. Normal is no stenosis. Mild is less than 50% stenosis. Moderate is 50-69% stenosis. Severe is 70% to 99% stenosis. Total occlusion is no detectable patent lumen.
[2024-01-03] MEDS: ACETAMINOPHEN 1,000MG/100ML VIAL 1000 MG IV (22:05)
[2024-01-03] MEDS: LACTATED RINGERS 1000ML 1,000 ML 999 ML IV (22:05)
[2024-01-03] MEDS: PROCHLORPERAZINE 10MG/2ML VIAL 5 MG IV (22:05)
[2024-01-03] MEDS: diphenhydrAMINE 50MG/ML VIAL 50 MG IV (22:05)
[2024-01-03 22:07] LABS: Troponin I < 0.01 ng/ml (0.00-0.034)
[2024-01-03 22:11] LABS: HCG Qualitative, Serum Negative (Negative)
[2024-01-03] MEDS: 0.9 % SODIUM CHLORIDE 50 ML VIAL 100 ML IV (23:04)
[2024-01-03] MEDS: IOPAMIDOL-370 (76%);100ML BOTTLE 180 ML IV (23:05)
[2024-01-03] MEDS: SODIUM CHLORIDE 0.9% 10ML SYR (RAD ONLY) 10 ML IV (23:05)
[2024-01-04 00:27] LABS: Troponin I < 0.01 ng/ml (0.00-0.034)
[2024-01-04 00:43] VITALS: BP 114/58; PULSE 66; RESP 14; TEMP 36.8; O2SAT 97
== END 2024-01-04 00:46 | disposition home or self-care (01) ==
PROVIDERS: Emergency Provider Emergency Medicine
DX: R07.9 Chest pain, unspecified (principal); M54.2 Cervicalgia; R51.9 Headache, unspecified; M62.838 Other muscle spasm
CPT/HCPCS: 70450; 70496; 70498; 71045; 71275; 80053; 84484; 84703; 85025; 93005; 96361; 96374; 96375; 99285; J0131; J7120; Q9967

== ENCOUNTER 2024-02-20 08:03 | Outpatient (CLI) | payer OTHER, SELFPAY ==
--- NOTE | 2024-02-20 08:12 | US_ITS ---
FINAL REPORT TECHNIQUE: Ultrasound images of the abdomen were obtained. CLINICAL HISTORY: RUQ PAIN COMPARISON: None FINDINGS: The pancreas is obscured by bowel gas. There is mild diffuse increased echogenicity of the liver, consistent with fatty infiltration of the liver. A small amount of sludge is present in the gallbladder. The common duct is normal. The right kidney measures 11.1 cm in length and is normal in echogenicity without hydronephrosis. The left kidney measures 11.4 cm in length and is normal in echogenicity without hydronephrosis. The spleen is unremarkable. The aorta is normal in caliber. The vena cava is unremarkable. IMPRESSION: Small amount of sludge is present in the gallbladder without evidence of biliary ductal dilatation. Fatty infiltration of the liver. Reviewed, Interpreted and Dictated by Adolfo Meneses MD Transcribed by Radha Castañeda Authenticated and [facility]
== END 2024-02-20 23:59 | disposition home or self-care (01) ==
LOC: RAD 08:04
PROVIDERS: PCP Family Medicine; Visit Provider Family Medicine
DX: R10.11 Right upper quadrant pain (principal)
CPT/HCPCS: 76700

== ENCOUNTER 2024-04-17 08:53 | Outpatient (CLI) | payer OTHER, SELFPAY ==
[2024-04-17 08:59] LABS: Microscopic, Urine URINE MICROSCOPIC (MICROSCOPIC)
[2024-04-17 09:17] LABS: Basophils % 0.8 % (0.1-2.0); Eosinophils # 0.1 K/mm3 (0.0-0.4); Eosinophils % 1.4 % (0.1-12.0); Hemoglobin 14.2 g/dL (12.2-16.2); Lymphocytes # 1.7 K/mm3 (0.7-4.5); Lymphocytes % 34.9 % (10-50); Mean Corpuscular HGB Conc 35.5 g/dL (31.8-35.4); Mean Corpuscular Hemoglobin 31.8 pg (27.0-31.2); Mean Corpuscular Volume 89.5 fl (81-99); Mean Platelet Volume 6.9 fl (7.4-10.4); Monocytes # 0.3 K/mm3 (0.1-1.0); Monocytes % 5.3 % (1.7-9.3); Neutrophils # 2.9 K/mm3 (1.8-7.8); Neutrophils % 57.7 % (37.0-80.0); Platelet Count 256 K/mm3 (142-424); Red Blood Count 4.46 M/mm3 (4.20-5.40); Red Cell Distribution Width 13.4 % (11.5-17.5); White Blood Count 4.9 K/mm3 (4.8-10.8)
[2024-04-17 09:44] LABS: Appearance,Urine CLEAR (Clear); Bilirubin,Urine Negative (Negative); Blood, Urine Negative (Negative); Color,Urine YELLOW (Yellow); Glucose,Urine (UA) Negative (Negative); Ketones,Urine Negative (Negative); Leukocyte Esterase,Urine Negative (Negative); Nitrate,Urine Negative (Negative); Protein,Urine Negative (Negative); Specific Gravity, Urine >= 1.030 (1.005-1.030); Urobilinogen,Urine 0.2 EU/dl (0.2)
[2024-04-17 09:49] LABS: Alanine Aminotransferase 54 U/L (12-78); Albumin Level 4.5 g/dl (3.5-5.0); Alkaline Phosphatase 37 U/L (38-126); Anion Gap 10.9 mEq/L (5-15); Aspartate Amino Transferase 35 U/L (14-36); Bilirubin,Total 0.7 mg/dl (0.2-1.3); Blood Urea Nitrogen 11 mg/dl (7-17); Calcium 9.1 mg/dl (8.4-10.2); Carbon Dioxide 25 mmol/L (22.0-30.0); Chloride 106 mmol/L (98-107); Chol/HDL Ratio 5.9 (1-3.5); Cholesterol 226 mg/dl (140-200); Estimated Glomerular Filt Rate 111 ml/min (>60); GFR (African American) 134 ML/MIN (>60); Globulin 2.3 g/dL (1.3-3.2); Glucose 113 mg/dl (74-100); HDL Cholesterol 38 mg/dl (40-60); Potassium 3.9 mmoL/L (3.5-5.1); Sodium 138 mmol/L (136-145); Total Protein,Serum 6.8 g/dl (6.3-8.2); Triglycerides 203 mg/dl (30-150); VLDL Cholesterol 41 mg/dL (0-40)
[2024-04-17 10:00] LABS: Direct LDL Cholesterol 145.86 mg/dL (100-129)
[2024-04-17 10:40] LABS: Vitamin B12 518 pg/mL (239-931)
[2024-04-17 10:55] LABS: Hemoglobin A1C 5.8 % (4.0-6.0)
[2024-04-17 11:21] LABS: Free Thyroxine Index 2.7 ug/dL (5.93-13.13); T4 (Thyroxine) 7.6 ug/dl (5.53-11.0); Triiodothryronine (T3) Uptake 36 % (23.5-40.5)
[2024-04-17 11:25] LABS: Ferritin 70.8 ng/ml (6.24-137)
[2024-04-17 11:35] LABS: Thyroid Stimulating Hormone 4.95 uIU/mL (0.465-4.68)
[2024-04-18 11:50] LABS: Insulin Level Total 17.9 uIU/mL (2.6-24.9)
[2024-04-21 21:24] LABS: Vitamin B1 131.6 nmol/L (66.5-200.0)
[2024-04-23 10:09] LABS: Vitamin B6 27.3 ug/L (3.4-65.2)
[2024-04-26 08:22] LABS: 1,25 Dihydroxy Vitamin D 66 pg/mL (.); 1,25-Dihydroxy, Vitamin D-2 <10 pg/mL (.); 1,25-Dihydroxy, Vitamin D-3 66 pg/mL (.)
== END 2024-04-17 23:59 | disposition home or self-care (01) ==
LOC: LAB 08:54
PROVIDERS: PCP Family Medicine; Visit Provider Obstetrics & Gynecology
DX: R10.84 Generalized abdominal pain (principal); R14.0 Abdominal distension (gaseous)
CPT/HCPCS: 36415; 80050; 80053; 80061; 81001; 82607; 82652; 82728; 83036; 83525; 84207; 84425; 84436; 84443; 84479; 84550; 85025

== ENCOUNTER 2024-04-23 08:10 | Outpatient (CLI) | payer OTHER, SELFPAY ==
--- NOTE | 2024-04-23 08:10 | US_ITS ---
PROCEDURE: US TRANSVAGINAL CLINICAL INDICATION: Pelvic Pain COMPARISON: US US ABDOMEN COMPLETE from 02/20/2024 FINDINGS: Transvaginal sonographic images of the pelvis were obtained. UTERUS: 6.9 cm x 4cmx 2.6 cm anteverted with a combined endometrial thickness of 1.7mm. There are multiple cystic areas within the body of the uterus. The largest cyst is anterior and measures 8.4 mm x 4.2 mm LEFT OVARY: 1.9 cmx1.3cmx1.2cm with a volume of 1.6ml. There is a follicle measuring 0.8 cm x 0.6 cm x 0.7 cm RIGHT OVARY: 2.1cmx 2.6 cmx3.1cm with a volume of 8.8ml. There is a small follicle measuring 1.1 cm x 0.7 cm x 0.6 cm Both ovaries are seen and appear normal. Doppler flow to both ovaries are seen. There is no fluid in the cul-de-sac. IMPRESSION: 1. Anteverted, small uterus. The endometrium is thin. Within the body of the uterus there are multiple small cystic areas. The largest is anterior and measures 8.4 mm. Possible adenomyosis. 2. Both ovaries are seen and appear normal. They both have a small follicle. 3. No fluid in the cul-de-sac. Dictated by: Moris Seals MD 04/23/2024 10:31 Moris Seals MD in [facility] 04/23/2024 10:31
--- NOTE | 2024-04-23 08:10 | US_ITS ---
PROCEDURE INFORMATION: Exam: US Right Breast, Complete Exam date and time: 04/23/2024 9:06 AM Age: 38 years old Clinical indication: Concern for right breast pain. TECHNIQUE: Imaging protocol: Complete ultrasound of all four quadrants of the right breast and the retroareolar regions, including ultrasound of the axilla when performed. COMPARISON: No relevant prior studies available. FINDINGS: ULTRASOUND: Breast ultrasound findings: Right sonography, all 4 quadrants, retroareolar and axilla. No sonographic findings demonstrated. Sonographically unremarkable axillary lymph node. IMPRESSION: Patient will be recalled for right diagnostic mammography for further evaluation of right breast pain, and if no prior mammography, recall for bilateral mammography. No sonographic evidence of malignancy. Further evaluation of a painful abnormality should be based on clinical grounds regardless of radiographic findings or lack thereof. ASSESSMENT: BI-RADS Category 0: Incomplete: Need Additional Imaging Evaluation.
== END 2024-04-23 23:59 | disposition home or self-care (01) ==
LOC: RAD 08:10
PROVIDERS: PCP Family Medicine; Visit Provider Obstetrics & Gynecology
DX: R10.2 Pelvic and perineal pain (principal); R10.84 Generalized abdominal pain; R14.0 Abdominal distension (gaseous); N64.4 Mastodynia
CPT/HCPCS: 76641; 76830

== ENCOUNTER 2024-06-11 13:04 | Outpatient (CLI) | payer OTHER, SELFPAY ==
--- NOTE | 2024-06-11 13:30 | MM_ITS ---
PROCEDURE INFORMATION: Exam: MG Bilateral Diagnostic Breast Tomosynthesis Exam date and time: 06/11/2024 1:13 PM Age: 38 years old Clinical indication: Recalls after negative sonography 04/23/2024 for mammographic evaluation of concern related to right breast pain., no concern related to breast pain indicated on the clinical history form. TECHNIQUE: Imaging protocol: Bilateral Diagnostic tomosynthesis and 2D mammography including computer-aided detection (CAD) when performed. Unilateral or bilateral exam. COMPARISON: US BREAST RT COMPLETE 04/23/2024 9:06 AM FINDINGS: MAMMOGRAPHY: Breast mammogram findings: Breast composition: There are scattered areas of fibroglandular density. Mass: None. Architectural distortion: None. Calcifications: No suspicious calcifications. Asymmetric density: Questionable broad patchy asymmetry in the left upper outer quadrant posterior 3rd. Skin thickening: None. Axillary adenopathy: None. IMPRESSION: Patient will be recalled for left diagnostic mammography with spot compression in CC and MLO, and true lateral as well as left sonography with attention to the upper-outer quadrant, for further evaluation questionable left asymmetry. No mammographic evidence of malignancy on the right.Further evaluation of a painful abnormality should be based on clinical grounds regardless of radiographic findings or lack thereof. ASSESSMENT: BI-RADS Category 0: Incomplete: Need Additional Imaging Evaluation.
== END 2024-06-11 23:59 | disposition home or self-care (01) ==
LOC: RAD 13:05
PROVIDERS: PCP Family Medicine; Visit Provider Obstetrics & Gynecology
DX: Z12.31 Encounter for screening mammogram for malignant neoplasm of breast (principal)
CPT/HCPCS: 77062; 77066; G0279

== ENCOUNTER 2024-06-15 10:05 | Outpatient (CLI) | payer OTHER, SELFPAY ==
[2024-06-15 10:31] LABS: Basophils % 0.4 % (0.1-2.0); Eosinophils # 0.1 K/mm3 (0.0-0.4); Eosinophils % 1.3 % (0.1-12.0); Hematocrit 40.3 % (37.0-47.0); Hemoglobin 13.8 g/dL (12.2-16.2); Lymphocytes # 1.6 K/mm3 (0.7-4.5); Lymphocytes % 30.3 % (10-50); Mean Corpuscular HGB Conc 34.2 g/dL (31.8-35.4); Mean Corpuscular Hemoglobin 30.7 pg (27.0-31.2); Mean Corpuscular Volume 89.8 fl (81-99); Mean Platelet Volume 9.2 fl (7.4-10.4); Monocytes # 0.3 K/mm3 (0.1-1.0); Monocytes % 6.2 % (1.7-9.3); Neutrophils # 3.2 K/mm3 (1.8-7.8); Neutrophils % 61.4 % (37.0-80.0); Platelet Count 251 K/mm3 (142-424); Red Blood Count 4.49 M/mm3 (4.20-5.40); Red Cell Distribution Width 11.9 % (11.5-17.5); White Blood Count 5.2 K/mm3 (4.8-10.8)
[2024-06-15 11:00] LABS: Alanine Aminotransferase 43 U/L (12-78); Albumin Level 4.4 g/dl (3.5-5.0); Alkaline Phosphatase 40 U/L (38-126); Aspartate Amino Transferase 35 U/L (14-36); Blood Urea Nitrogen 11 mg/dl (7-17); Calcium 9.2 mg/dl (8.4-10.2); Carbon Dioxide 30 mmol/L (22.0-30.0); Chloride 104 mmol/L (98-107); Chol/HDL Ratio 5.9 (1-3.5); Cholesterol 213 mg/dl (140-200); Estimated Glomerular Filt Rate 93 ml/min (>60); GFR (African American) 112 ML/MIN (>60); Globulin 2.2 g/dL (1.3-3.2); Glucose 99 mg/dl (74-100); Glucose,Fasting 99 mg/dl (74-100); HDL Cholesterol 36 mg/dl (40-60); Sodium 138 mmol/L (136-145); Total Protein,Serum 6.6 g/dl (6.3-8.2); Triglycerides 205 mg/dl (30-150); VLDL Cholesterol 41 mg/dL (0-40)
[2024-06-15 11:11] LABS: Direct LDL Cholesterol 143.73 mg/dL (100-129)
[2024-06-15 11:14] LABS: Anion Gap 8.1 mEq/L (5-15); Potassium 4.1 mmoL/L (3.5-5.1)
[2024-06-15 11:18] LABS: Free Thyroxine Index 2.9 ug/dL (5.93-13.13); T4 (Thyroxine) 8.3 ug/dl (5.53-11.0); Triiodothryronine (T3) Uptake 35 % (23.5-40.5)
[2024-06-15 11:20] LABS: 25-OH Vitamin D, Total 29.9 ng/mL (30-100)
[2024-06-15 11:31] LABS: Thyroid Stimulating Hormone 2.99 uIU/mL (0.465-4.68)
[2024-06-15 11:33] LABS: Thyroid Stimulating Hormone 3.04 uIU/mL (0.465-4.68)
[2024-06-16 07:09] LABS: HCV Ab Non Reactive (Non Reactive); Hepatitis B Surface Antigen Negative (Negative)
== END 2024-06-15 23:59 | disposition home or self-care (01) ==
LOC: LAB 10:07
PROVIDERS: PCP Internal Medicine; Visit Provider Obstetrics & Gynecology
DX: R10.84 Generalized abdominal pain (principal); R14.0 Abdominal distension (gaseous); E55.9 Vitamin D deficiency, unspecified
CPT/HCPCS: 36415; 80050; 80053; 80061; 82306; 82947; 84436; 84443; 84479; 85025; 86803; 87340

== ENCOUNTER 2024-09-18 10:36 | Outpatient (CLI) | payer OTHER, SELFPAY ==
--- NOTE | 2024-09-18 10:39 | XR_ITS ---
FINAL REPORT CLINICAL HISTORY: Fatigue COMPARISON: 01/03/2024 FINDINGS: PA and lateral views of the chest were obtained. The cardiac and mediastinal silhouettes are within normal limits. There is evidence of granulomatous disease. The lungs are otherwise clear. There is no pleural effusion or pneumothorax. No acute osseous abnormality is identified. IMPRESSION: No radiographic evidence of acute cardiac or pulmonary disease. Reviewed, Interpreted and Dictated by Maame Gonzales MD Transcribed by Mary Bernal Authenticated and [facility]
[2024-09-18 13:36] LABS: Basophils % 0.8 % (0.1-2.0); Eosinophils # 0.1 K/mm3 (0.0-0.4); Eosinophils % 2.4 % (0.1-12.0); Hemoglobin 14.2 g/dL (12.2-16.2); Lymphocytes # 1.9 K/mm3 (0.7-4.5); Lymphocytes % 35.2 % (10-50); Mean Corpuscular HGB Conc 33.8 g/dL (31.8-35.4); Mean Corpuscular Hemoglobin 30.8 pg (27.0-31.2); Mean Corpuscular Volume 91.1 fl (81-99); Mean Platelet Volume 9.4 fl (7.4-10.4); Monocytes # 0.4 K/mm3 (0.1-1.0); Monocytes % 6.6 % (1.7-9.3); Neutrophils # 2.9 K/mm3 (1.8-7.8); Neutrophils % 54.6 % (37.0-80.0); Platelet Count 304 K/mm3 (142-424); Red Blood Count 4.61 M/mm3 (4.20-5.40); Red Cell Distribution Width 12.4 % (11.5-17.5); White Blood Count 5.3 K/mm3 (4.8-10.8)
[2024-09-18 14:16] LABS: Alanine Aminotransferase 27 U/L (12-78); Albumin/Globulin Ratio 2.2 (1.1-1.8); Alkaline Phosphatase 41 U/L (38-126); Anion Gap 11.4 mEq/L (5-15); Aspartate Amino Transferase 25 U/L (14-36); Bilirubin,Total 0.7 mg/dl (0.2-1.3); Blood Urea Nitrogen 11 mg/dl (7-17); Calcium 9.6 mg/dl (8.4-10.2); Carbon Dioxide 27 mmol/L (22.0-30.0); Chloride 102 mmol/L (98-107); Chol/HDL Ratio 6.6 (1-3.5); Cholesterol 252 mg/dl (140-200); Estimated Glomerular Filt Rate 111 ml/min (>60); GFR (African American) 134 ML/MIN (>60); Globulin 2.3 g/dL (1.3-3.2); Glucose 80 mg/dl (74-100); HDL Cholesterol 38 mg/dl (40-60); Potassium 4.4 mmoL/L (3.5-5.1); Sodium 136 mmol/L (136-145); Total Protein,Serum 7.3 g/dl (6.3-8.2); Triglycerides 299 mg/dl (30-150); VLDL Cholesterol 60 mg/dL (0-40)
[2024-09-18 14:28] LABS: Direct LDL Cholesterol 139.93 mg/dL (100-129)
[2024-09-18 14:31] LABS: 25-OH Vitamin D, Total 28.1 ng/mL (30-100)
[2024-09-18 14:45] LABS: Thyroid Stimulating Hormone 3.79 uIU/mL (0.465-4.68)
== END 2024-09-18 23:59 | disposition home or self-care (01) ==
LOC: RAD 10:37
PROVIDERS: PCP Internal Medicine; Visit Provider Internal Medicine
DX: R53.83 Other fatigue (principal); E55.9 Vitamin D deficiency, unspecified; Z13.29 Encounter for screening for other suspected endocrine disorder; Z13.21 Encounter for screening for nutritional disorder; Z13.220 Encounter for screening for lipoid disorders
CPT/HCPCS: 71046; 80053; 80061; 82306; 84439; 84443; 85025

== ENCOUNTER 2024-11-20 08:10 | Outpatient (CLI) | payer OTHER, SELFPAY ==
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
[2024-11-20 08:16] LABS: Anti-Centromere B Antibodies ND; Anti-DNA (DS) Ab Qn ND; Anti-Jo-1 ND; Antichromatin Antibodies ND; Antiscleroderma-70 Antibodies ND; RNP Antibodies ND; Sjogren's Anti-SS-A ND; Sjogren's Anti-SS-B ND
[2024-11-20 08:55] LABS: Basophils % 0.4 % (0.1-2.0); Eosinophils # 0.1 Kmm3 (0.0-0.4); Eosinophils % 1.7 % (0.1-12.0); Hematocrit 43.7 % (37.0-47.0); Immature Granulocytes # 0.02 10^3uL; Immature Granulocytes % 0.3 %; Lymphocytes # 2.1 K/mm3 (0.7-4.5); Lymphocytes % 29.9 % (10-50); Mean Corpuscular HGB Conc 34.3 g/dL (31.8-35.4); Mean Corpuscular Hemoglobin 30.5 pg (27.0-31.2); Mean Platelet Volume 9.1 fl (7.4-10.4); Monocytes # 0.5 K/mm3 (0.1-1.0); Monocytes % 6.7 % (1.7-9.3); Neutrophils # 4.3 K/mm3 (1.8-7.8); Nucleated Red Blood Cells # 0 10^3/uL; Nucleated Red Blood Cells % 0 %; Platelet Count 284 K/mm3 (142-424); Red Blood Count 4.91 M/mm3 (4.20-5.40); Red Cell Distribution Width 12.4 % (11.5-17.5); Red Cell Distribution Width-SD 40.5 fL
--- NOTE | 2024-11-20 09:00 | US_ITS ---
FINAL REPORT TECHNIQUE: Sonographic images of the thyroid were obtained. CLINICAL HISTORY: Goiter COMPARISON: None FINDINGS: THYROID ULTRASOUND The patient is status post right lobectomy. There does appear to be some tissue at the expected location of the right lobe of the thyroid. This tissue measures 1.3 cm in craniocaudal dimension and has echogenicity similar to the left lobe of the thyroid and may represent some residual right lobe tissue. The left thyroid gland measures 3.8 x 1.4 x 1.9 cm. The parenchyma shows normal echogenicity. There is a 0.9 cm hypoechoic solid nodule, TI-RADS 4. IMPRESSION: Less than 1 cm left thyroid nodule, TI-RADS 4. No follow-up required per TI-RADS criteria. Reviewed, Interpreted and Dictated by Adolfo Meneses MD Transcribed by Emily Whipple Authenticated and [facility]
[2024-11-20 09:27] LABS: Alanine Aminotransferase 36 U/L (12-78); Albumin Level 4.8 g/dl (3.5-5.0); Albumin/Globulin Ratio 1.9 (1.1-1.8); Alkaline Phosphatase 51 U/L (38-126); Amylase 46 U/L (30-110); Anion Gap 13.1 mEq/L (5-15); Aspartate Amino Transferase 27 U/L (14-36); Bilirubin,Total 0.6 mg/dl (0.2-1.3); Blood Urea Nitrogen 11 mg/dl (7-17); Calcium 9.5 mg/dl (8.4-10.2); Carbon Dioxide 27 mmol/L (22.0-30.0); Chloride 103 mmol/L (98-107); Chol/HDL Ratio 5.8 (1-3.5); Cholesterol 261 mg/dl (140-200); Estimated Glomerular Filt Rate 92 ml/min (>60); GFR (African American) 112 ML/MIN (>60); Globulin 2.5 g/dL (1.3-3.2); Glucose 109 mg/dl (74-100); HDL Cholesterol 45 mg/dl (40-60); Lipase 70 U/L (23-300); Potassium 4.1 mmoL/L (3.5-5.1); Sodium 139 mmol/L (136-145); Total Protein,Serum 7.3 g/dl (6.3-8.2); Triglycerides 286 mg/dl (30-150); VLDL Cholesterol 57 mg/dL (0-40)
[2024-11-20 09:38] LABS: Direct LDL Cholesterol 176.29 mg/dL (100-129)
[2024-11-20 09:42] LABS: Free T4 (Free Thyroxine) 1.08 ng/dl (0.78-2.19)
[2024-11-20 09:57] LABS: Thyroid Stimulating Hormone 6.09 uIU/mL (0.465-4.68)
[2024-11-21 08:35] LABS: Thyroid Peroxidase Antibodies 11 IU/mL (0-34); Triiodothyronine (T3) Free 3.2 pg/mL (2.0-4.4)
[2024-11-21 11:34] LABS: Antinuclear Antibodies (ANA) Negative (Negative)
[2024-11-21 17:21] LABS: Deamidated Gliadin Abs, IgA 1 units (0-19); Deamidated Gliadin Abs, IgG 2 units (0-19); Endomysial IgA Antibody Negative (Negative); H. pylori Breath Test Negative (Negative); Thyroglobulin Level <1.0 IU/mL (0.0-0.9); Tissue Transglutaminase IgA Ab <2 U/mL (0-3); Tissue Transglutaminase IgG Ab 4 U/mL (0-5)
[2024-11-22 13:16] LABS: F026-IgE Pork < 0.10 kU/L (Class 0); F027-IgE Beef < 0.10 kU/L (Class 0); F088-IgE Lamb < 0.10 kU/L (Class 0); Immunoglobulin E, Total 132 IU/mL (6-495); O215-IgE Alpha-Gal < 0.10 kU/L (Class 0)
[2024-11-23 07:11] LABS: Reticulin IgA Antibody Negative titer (Neg:<1:2.5)
[2024-11-24 09:17] LABS: Triiodothyronine (T3) Reverse 25.6 ng/dL (9.2-24.1)
== END 2024-11-20 23:59 | disposition home or self-care (01) ==
LOC: RAD 08:11
PROVIDERS: PCP Family Medicine; Visit Provider Nurse Practitioner Family
DX: E04.1 Nontoxic single thyroid nodule (principal); R14.0 Abdominal distension (gaseous); Z13.220 Encounter for screening for lipoid disorders
CPT/HCPCS: 36415; 76536; 80053; 80061; 82150; 82785; 83013; 83516; 83690; 84436; 84439; 84443; 84481; 84482; 85025; 86003; 86008; 86038; 86255; 86256; 86376; 86800

== ENCOUNTER 2025-05-02 09:09 | Outpatient (CLI) | payer OTHER, SELFPAY ==
--- OUTSIDE RECORDS SUMMARY | 2025-05-02 09:21 | XMS_ITS | Encounter Summary ---
Author Organization [facility] Address [address] [place] [address] Care Team Providers Care Funeral Pre Need Consultant Name Role Phone Unavailable Primary Care Provider Unavailabl e Prior Encounters Date Type Department Care Team Description 07/16/2019 Converted 13x Documents [facility] [address] [facility] [place], [place] [address] <No scans attached> Plan of Treatment Not on file Procedures Procedure Name Priority Date/Time Associated Diagnosis Comments CANCELLED APPOINTMENT Routine 02/01/2018 1:00 AM MDT Visit Diagnoses Not on file
--- OUTSIDE RECORDS SUMMARY | 2025-05-02 09:21 | XMS_ITS | Clinical Summary ---
Author Organization [employer] ([place], [place], [place], [place], [place]) Address [address] [place] [address] Care Team Providers Care Computer System Specialist Name Role Phone Unavailable Primary Care Provider Unavailabl e Social History Tobacco Use Types Packs/Day Years Used Date Smoking Tobacco: Never Assessed Food Insecurity Answer Date Recorded Food run out past 12 months Not on file 06/27 Food did not last past 12 months Not on file 07/07/2023 Employment Answer Date Recorded Help finding and keeping a job Not on file 0 07/07/2023 Family and Community Support Answer George e Recorded Help with Day to Day Activities Not on file 07/07/2023 Feeling Lonely or Isolated Not on file 07/07 Educational Attainment Answer Date Blair rded Speak language other than Angolan at home Not on file 07/07/2023 Want help with school or training Not on file 07/07/2023 Substance Use Answer Date Recorded Used prescription meds for non-medical reasons N ot on file 07/07/2023 Used illegal drugs past 12 months Not on file 07/07/2023 Comments Unknown Sex and Gender Information Value Date Recorded Sex Assigned at Not on file 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
--- OUTSIDE RECORDS SUMMARY | 2025-05-02 09:21 | XMS_ITS | Referral Summary ---
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
--- OUTSIDE RECORDS SUMMARY | 2025-05-02 09:21 | XMS_ITS | Encounter Summary ---
Author Organization [employer] ([place], [place], [place], [place], [place]) Address [address] [place] [address] Care Team Providers Care Wire Tinner Name Role Phone Unavailable Primary Care Provider Unavailabl e Encounter Details Date Type Department Care Team (Late st Contact Info) Description 07/07/2023 Telephone [facility] Central Scheduling [address] [place] [address] Daisha Abbasi, DO [address] [facility] [address] [place] [address] Social History Tobacco Use Types Packs/Day Years [...] Date Blair rded Speak language other than German at home Not on file 07/07/2023 Want help with school or training Not on file 07/07/2023 Substance Use Answer Date Recorded Used prescription meds for non-medical reasons N ot on file 07/07/2023 Used illegal drugs past 12 months Not on file 07/07/2023 Comments Unknown Sex and Gender Information Value Date Recorded Sex Assigned at Not on file 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
--- OUTSIDE RECORDS SUMMARY | 2025-05-02 09:21 | XMS_ITS | Clinical Summary ---
Author Organization [facility] [address] [facility] [address] Care Team Providers Care Retail Merchandising Coordinator Name Role Phone Unavailable Primary Care Provider Unavailabl e Social History Tobacco Use Types Packs/Day Years Used Date Smoking Tobacco: Never Assessed Comments Unknown Sex and Gender Information Value Date Recorded Sex Assigned at Not on file Legal Sex Female 10:57 AM PST Gender Identity Not on file Sexual Orientation Not on file Plan of Treatment Not on file
== END 2025-05-02 23:59 | disposition home or self-care (01) ==
LOC: LAB 09:10
PROVIDERS: PCP Nurse Practitioner Family; Visit Provider Nurse Practitioner Family
DX: R14.0 Abdominal distension (gaseous) (principal)
CPT/HCPCS: 82653; 83993

== ENCOUNTER 2025-05-09 07:57 | Outpatient (CLI) | payer OTHER, SELFPAY ==
--- OUTSIDE RECORDS SUMMARY | 2025-05-09 07:59 | XMS_ITS | Encounter Summary ---
Author Organization [employer] ([place], [place], [place], [place], [place]) Address [address] [place] [address] Care Team Providers Care Clocksmith Name Role Phone Unavailable Primary Care Provider Unavailabl e Encounter Details Date Type Department Care Team (Late st Contact Info) Description 07/07/2023 Telephone [facility] Central Scheduling [address] [place] [address] Daisha Abbasi, DO [address] [facility] [address] [place] [address] Social History Tobacco Use Types [...] Date Blair rded Speak language other than Pakistani at home Not on file 07/07/2023 Want help with school or training Not on file 07/07/2023 Substance Use Answer Date Recorded Used prescription meds for non-medical reasons N ot on file 07/07/2023 Used illegal drugs past 12 months Not on file 07/07/2023 Comments Unknown Sex and Gender Information Value Date Recorded Sex Assigned at Not on file 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
--- OUTSIDE RECORDS SUMMARY | 2025-05-09 07:59 | XMS_ITS | Referral Summary ---
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
--- OUTSIDE RECORDS SUMMARY | 2025-05-09 07:59 | XMS_ITS | Clinical Summary ---
Author Organization [facility] Address [address] [place] [address] Care Team Providers Care Soldering Machine Feeder Name Role Phone Unavailable Primary Care Provider [...]
--- OUTSIDE RECORDS SUMMARY | 2025-05-09 07:59 | XMS_ITS | Encounter Summary ---
Author Organization [facility] Address [address] [place] [address] Care Team Providers Care Firefighter Type One Name Role Phone Unavailable Primary Care Provider Unavailabl e Prior Encounters Date Type Department Care Team Description 07/16/2019 Converted 13x Documents [facility] [address] [facility] [address], [place] [address] <No scans attached> Plan of Treatment Not on file Procedures Procedure Name Priority Date/Time Associated Diagnosis Comments CANCELLED APPOINTMENT Routine 02/01/2018 1:00 AM MDT Visit Diagnoses Not on file
--- OUTSIDE RECORDS SUMMARY | 2025-05-09 07:59 | XMS_ITS | Clinical Summary ---
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
--- NOTE | 2025-05-09 08:30 | US_ITS ---
FINAL REPORT CLINICAL HISTORY: Bloating/abdominal distention FINDINGS: ULTRASOUND ABDOMEN There are fatty changes to the liver. Spleen has a normal sonographic appearance. No abnormality of the gallbladder is seen. No biliary ductal dilatation is identified. Kidneys show no evidence of mass or obstruction. Pancreas is not well visualized. IVC and aorta are grossly unremarkable. There is no obvious fluid collection. IMPRESSION: Fatty liver. Reviewed, Interpreted and Dictated by Ricki Mackey MD Transcribed by Parris Aguilera Authenticated and [facility]
== END 2025-05-09 23:59 | disposition home or self-care (01) ==
LOC: RAD 07:57
PROVIDERS: PCP Nurse Practitioner Family; Visit Provider Nurse Practitioner Family
DX: K76.0 Fatty (change of) liver, not elsewhere classified (principal); R14.0 Abdominal distension (gaseous)
CPT/HCPCS: 76700